=== PATIENT | female | born 1935 | race Caucasian/White ===

== ENCOUNTER 2024-04-02 07:43 | Day surgery (SDC) | payer MEDICARE, BC ==
[~2024-04-02] VITALS: Ht 160 cm; Wt 65.4 kg
[~2024-04-02 07:43] MED LIST: ACAR100T2 PO; DORZ10DR10 RIGHTEYE; DULO30CA52 PO; GABA300C PO; GLIM4TAB7 PO; LEVO88TA7 PO; LOSA100T58 PO; ROSU40TA89
[2024-04-02 08:09] VITALS: BP 125/54; PULSE 81; RESP 17; TEMP 97.9
[2024-04-02 08:50] VITALS: BP 108/49; PULSE 72; RESP 21; O2SAT 100
[2024-04-02 09:00] VITALS: BP 143/88; PULSE 73; RESP 17; O2SAT 98
[2024-04-02 09:10] VITALS: BP 108/53; PULSE 70; RESP 16; O2SAT 98
[2024-04-02 09:20] VITALS: BP 116/53; PULSE 69; RESP 17; O2SAT 97
== END 2024-04-02 09:37 | disposition home or self-care (01) ==
LOC: GI LAB 07:43
PROVIDERS: ATTEND Internal Medicine Gastroenterology
DX: R13.10 Dysphagia, unspecified (principal); K29.50 Unspecified chronic gastritis without bleeding; K21.00 Gastro-esophageal reflux disease with esophagitis, without bleeding; K44.9 Diaphragmatic hernia without obstruction or gangrene; E11.9 Type 2 diabetes mellitus without complications; I10 Essential (primary) hypertension; E78.5 Hyperlipidemia, unspecified; Z88.6 Allergy status to analgesic agent; Z98.890 Other specified postprocedural states; Z79.899 Other long term (current) drug therapy
CPT/HCPCS: 43239; A4620; J7030; Z7512

== ENCOUNTER 2024-08-14 13:56 | Emergency (ER) | payer MEDICARE, BC ==
[~2024-08-14] VITALS: Ht 157.5 cm; Wt 58.2 kg
[2024-08-14 14:07] VITALS: BP 149/60; PULSE 70; TEMP 98.1; O2SAT 96
--- NOTE | 2024-08-14 14:14 | Physician Documentation ---
History of Present Illness ~ Chief Complaint: Hip pain Stated Complaint: FALL Time Seen by MD: 14:13 Primary Medical Doctor: Dr. Mayberry HPI 89-year-old female brought to the emergency department for ambulance after a fall today. She reports frequent falls at home, and that she has mobility issues necessitating use of a walker or wheelchair. She reports that she was not dizzy today, and the fall occurred when she is transferring herself out of the bed. Chronic left hip pain, worse since fall. Denies loss of consciousness. Medication Reconciliation Allergies: Coded Allergies: codeine (Verified Allergy, Unknown, hives, 05/02/21) tramadol (Verified Allergy, Unknown, 05/02/21) Scheduled Acarbose* (Precose*), 1 TAB PO TID, (Reported) Dorzolamide HCl/Timolol Maleat (Dorzolamide-Timolol Eye Drops), 1 DROP RIGHTEYE BID, (Reported) Duloxetine HCl (Duloxetine HCl), 2 CAP PO DAILY, (Reported) Gabapentin (Neurontin), 1 CAP PO BID, (Reported) Glimepiride* (Amaryl*), 1 TAB PO BID, (Reported) Levothyroxine Sodium (Levothyroxine Sodium), 1 TAB PO QAM, (Reported) Losartan Potassium (Losartan Potassium), 1 TAB PO DAILY, (Reported) Rosuvastatin Calcium (Rosuvastatin Calcium), 1 DAILY, (Reported) Past Medical History Past Medical History: High Cholesterol, Hypertension, Diabetes Past Surgical History: noncontributory Alcohol Use: None Drug Use: none Lives In: Home Review of Systems ROS As stated above in the HPI, otherwise all systems are reviewed and negative. Physical Exam Vital Signs: Temperature: 98.1, Source: Oral, Heart Rate: 70, Respiratory Rate: 16, BP: 149/60, Pulse Oximetry: 96, Weight: 58.200 Oxygen Flow Rate: 0 Physical Exam General: Alert, no apparent distress. HEENT: PERRL, EOMI, no injection, moist mucous membranes. Neck: Full range of motion. Respiratory: Lungs clear, no respiratory distress. Chest: No accessory muscle use. Cardiovascular: Regular rate and rhythm, no murmurs. Gastrointestinal: Soft, nontender, nondistended. Bowels sounds present. Extremities: Left hip pain, reduced ROM. Neurologic: Oriented x4. Psychiatric: Normal mood and affect. Skin: Normal color, warm and dry. No edema, no ecchymosis. Progress Results/Orders Results/Orders Orders - SHELIA MONDRAGON [employer] Hip Unilateral 2 Views (08/14/24 14:52) Gait Test (08/14/24 ) Completed Orders - SHELIA MONDRAGON [employer] Hip Unilateral 2 Views (08/14/24 14:52) Hydrocodone/Apap 5/325mg Tab (Elim 5/32 (08/14/24 14:55) Cbc/Diff (08/14/24 14:59) CMP (08/14/24 14:59) Medications Received in ER Medications (Trade) Dose Ordered Sig/[place] Route PRN Reason Start Time Stop Time Status Last Admin Dose Admin (Elim 5/325mg tablet) 1 tab ONCE ONCE PO 08/14/24 14:55 08/14/24 14:56 DC 08/14/24 15:36 1 TAB Vital Signs 08/14/24 08/14/24 08/14/24 14:07 14:12 15:36 Temp 98.1 Pulse 70 Resp 16 16 20 B/P (MAP) 149/60 Pulse Ox 96 O2 Flow Rate 0 Laboratory Tests Test 08/14/24 15:17 White Blood Count 7.7 Red Blood Count 3.93 L Hemoglobin 13.3 Hematocrit 38.7 Mean Corpuscular Volume 98.6 H Mean Corpuscular Hemoglobin 33.8 H Mean Corpuscular Hemoglobin Concent 34.3 Red Cell Distribution Width 13.4 Platelet Count 165 Mean Platelet Volume 9.9 Neutrophils (%) (Auto) 72.5 Lymphocytes (%) (Auto) 15.8 L Monocytes (%) (Auto) 8.5 Eosinophils (%) (Auto) 2.5 Basophils (%) (Auto) 0.7 Neutrophils # (Auto) 5.6 Lymphocytes # (Auto) 1.2 Monocytes # (Auto) 0.7 Eosinophils # (Auto) 0.2 Basophils # (Auto) 0.1 CBC Comment Sodium Level 137 Potassium Level 4.1 Chloride Level 102 Carbon Dioxide Level 24.5 Anion Gap 11 Blood Urea Nitrogen 29 H Creatinine 1.06 H Estimated GFR/1.73 m2 49 BUN/Creatinine Ratio 27.4 H Glucose Level 138 H Calcium Level 9.6 Total Bilirubin 0.6 Aspartate Amino Transf (AST/SGOT) 26 Alanine Aminotransferase (ALT/SGPT) 28 Alkaline Phosphatase 96 Total Protein 7.6 Albumin 4.0 Globulin 3.6 Albumin/Globulin Ratio 1.1 Chemistry Comments EKG/XRAY/CT/US/VASC/MRI EKG : Additional Comment 1451 EKG interpreted to show sinus rhythm rate of 68. No Ectopy. No ST segment elevation. QTC 460 ms. Bone/Soft Tissue X-Ray (Spine) : Additional Comment [facility] [address], [place], [facility] [address] DIAGNOSTIC RADIOLOGY Patient: NADJA WHELAN Medical Record: [id number] [facility] : 1935, Age: 89 Sex: Female Location: ER Patient Status: [facility] ER Service Date/Time: 08/14/241451 Ordering Physician: SHELIA MONDRAGON NP Exam: HIP UNILATERAL 2 VIEWS CLINICAL INDICATION: fall, pain TECHNIQUE: 3 radiographic views of the left hip were obtained. Comparison: None FINDINGS/IMPRESSION: There is no evidence of acute fracture or dislocation. [id number] degenerative changes of the left hip with severe degenerative changes of the right hip. Moderate to severe degenerative changes of the pubic symphysis. Severe degenerative changes of L5-S1. Phleboliths is noted within the left hemipelvis. Vascular calcification is noted. Electronically Signed by:LOREE COTE DO Date & Time: 08/14/241606 Dictated by: LOREE COTE DO Dictation date and time: 08/14/241606 Primary Care Provider: NO PRIMARY CARE PROVIDER cc: SHELIA MONDRAGON NP ~ Medical Decision Making Additional Comment This is an 89-year-old female who presented to the ER today for worsening her for acute left hip pain after a fall that was caused by loss of balance. No dizziness or lightheadedness prior to onset of fall. X-ray negative for fracture. She was able to ambulates with her cane after she was medicated with one hydrocodone. She was then considered appropriate for discharge and outpatient follow up with the primary care provider. Departure Time of Disposition: 16:45 Disposition: 01 HOME / SELF CARE / HOMELESS Impression: Primary Impression: Hip pain Qualified Codes: M25.552 - Pain in left hip Condition: Stable Discharge Instructions: Fall Prevention in the Home, Adult, Hip Pain Additional Instructions: Take the pain pills just for the next couple days for pain. Take stool softeners while using these as they can cause constipation. Use your walker at all times to reduce risk of falls. Followup with your primary care. Return if worse. Referrals: NO PRIMARY CARE PROVIDER (PCP) Prescriptions Hydrocodone Bit/Acetaminophen 5/325 MG (Elim 5/325 MG) 5 Mg/325 Mg Tablet 1 TAB PO Q8H PRN for pain for 3 Days, #6 TAB Prov: SHELIA MONDRAGON NP 08/14/24 Education Educated: Patient Educated regarding: diagnosis, treatment, prognosis, need for follow up Signature Scribe Signature: x Attestation: The note accurately reflects work and decisions made by me.Shelia Guillen NP 08/14/24 16:47 SHELIA MONDRAGON NP Aug 14, 2024 14:14
--- NOTE | 2024-08-14 14:53 | ELECTROCARDIOGRAPH REPORT ---
[facility] Test Date: 2024-08-14 Test Time: 14:52:25 Pat Name: NADJA WHELAN Department: [facility]-ER Patient ID: [id number] Room: Gender: F Engagement Executive: : 1935 Requested By: EVELIA CHIU Order Number: [id number] Reading MD: Measurements Intervals [place] Rate: 68 P: 61 LA: 158 QRS: 52 QRSD: 88 T: 70 QT: 432 QTc: 460 Interpretive Statements Sinus rhythm Low voltage, precordial leads Please click the below link to view image of tracing.
[2024-08-14] MEDS: HYDROcodone/acetaminophen 5mg/325mg tablet PO ONE (15:36)
--- NOTE | 2024-08-14 16:10 | RADIOLOGY REPORT ---
CLINICAL INDICATION: fall, pain TECHNIQUE: 3 radiographic views of the left hip were obtained. Comparison: None FINDINGS/IMPRESSION: There is no evidence of acute fracture or dislocation. [id number] degenerative changes of the left hip with severe degenerative changes of the right h ip. Moderate to severe degenerative changes of the pubic symphysis. Severe degenerative changes of L5 -S1. Phleboliths is noted within the left hemipelvis. Vascular calcification is noted.
[2024-08-14 16:11] LABS: MEAN PLATELET VOLUME 9.9 FL (7.4-10.4); RED CELL DISTRIBUTION WIDTH 13.4 % (11.5-14.5)
[2024-08-14 16:34] LABS: CREATININE 1.06 MG/DL (0.40-0.90); TOTAL CARBON DIOXIDE 24.5 MMOL/L (24-32); eCRCL 29 ML/MIN; eGFR 49 ML/MIN
[2024-08-14] MEDS ORDERED: HYDR-3965 PO (16:46)
[2024-08-14 16:47] VITALS: RESP 16
== END 2024-08-14 18:44 | disposition home or self-care (01) ==
LOC: ER 13:57
DX: M25.552 Pain in left hip (principal); E11.9 Type 2 diabetes mellitus without complications; E78.00 Pure hypercholesterolemia, unspecified; I10 Essential (primary) hypertension; Z88.5 Allergy status to narcotic agent; Z88.8 Allergy status to other drugs, medicaments and biological substances; W19.XXXA Unspecified fall, initial encounter; Y93.89 Activity, other specified; Y92.89 Other specified places as the place of occurrence of the external cause; Y99.8 Other external cause status
CPT/HCPCS: 36415; 73502; 80053; 85025; 93005; 99285